=== PATIENT | male | born 1945 | race Caucasian/White ===

== ENCOUNTER 2017-04-26 21:31 | Emergency (ER) | payer MEDICARE, OTHER ==
[~2017-04-26] VITALS: Ht 157.5 cm; Wt 52.0 kg
[~2017-04-26 21:31] MED LIST: CETI-240 PO; FER325 PO; FINA5TAB PO; FOLI-49 PO; HYDR-3498 PO; IBUP-1542 PO; MAG355OR15 PO; ONDA4TAB8 PO; PANT40TA3 PO; VITA1TAB2 PO
[2017-04-26 22:31] VITALS: Ht 157.5 cm; Wt 52.0 kg
[2017-04-26] MEDS ORDERED: SOD CHLORIDE 0.9% 1,000 ML IV STA (23:00)
[2017-04-26] MEDS ORDERED: FAMOTIDINE 20 MG INJ IV STA (23:00)
[2017-04-26] MEDS: ONDANSETRON 4 MG INJ IV STA ×2 (23:21→23:40)
[2017-04-26 23:23] LABS: ADD SCAN DIFF NO
[2017-04-26 23:25] LABS: ADD UMIC NO; URINE BILIRUBIN (Dip) NEGATIVE (NEGATIVE); URINE BLOOD (Dip) NEGATIVE (NEGATIVE); URINE COLOR LT. YELLOW (YELLOW); URINE GLUCOSE (Dip) NEGATIVE (NEGATIVE); URINE KETONES (Dip) NEGATIVE (NEGATIVE); URINE LEUKOCYTE ESTERASE (Dip) NEGATIVE (NEGATIVE); URINE NITRITE (Dip) NEGATIVE (NEGATIVE); URINE TOTAL PROTEIN (Dip) NEGATIVE (NEGATIVE); URINE UROBILINOGEN (Dip) 1.0 E.U./dL (0.1-1.0)
[2017-04-26 23:26] LABS: BASOPHILS % 0.2 % (0.0-2.0); EOSINOPHILS # 0.5 10^3/ul (0.0-0.5); EOSINOPHILS % 8.8 % (0.0-7.0); HEMATOCRIT 26.7 % (42.0-52.0); HEMOGLOBIN 8.8 g/dl (14.0-18.0); LYMPHOCYTES % 15.9 % (15.0-51.0); MEAN CORPUSCULAR HEMOGLOBIN 32.8 pg (29.0-33.0); MEAN CORPUSCULAR VOLUME 99.6 fl (82.0-101.0); MEAN PLATELET VOLUME 10.2 fl (7.4-10.4); MONOCYTE # 0.5 10^3/ul (0.3-0.9); MONOCYTES % 7.6 % (0.0-11.0); NEUTROPHIL # 4.2 10^3/ul (1.6-7.5); NEUTROPHILS % 67.3 % (39.0-77.0); PLATELET COUNT 185 10^3/UL (140-415); RED BLOOD COUNT 2.68 10^6/ul (4.70-6.10); WHITE BLOOD COUNT 6.2 10^3/ul (4.8-10.8)
[2017-04-26 23:41] LABS: INR 1.05; PARTIAL THROMBOPLASTIN TIME 29.1 Sec (25.0-35.0); PROTIME 13.7 Sec (12.2-14.2); PT RATIO 1.1
[2017-04-26 23:52] LABS: ALANINE AMINOTRANSFERASE 32 IU/L (13-69); ALBUMIN 3.8 g/dl (3.3-4.9); ALBUMIN/GLOBULIN RATIO 1.26; ALKALINE PHOSPHATASE 68 IU/L (42-121); ANION GAP 11 (8-16); ASPARTATE AMINO TRANSFERASE 26 IU/L (15-46); BILIRUBIN,INDIRECT 0.1 mg/dl (0-1.1); BILIRUBIN,TOTAL 0.1 mg/dl (0.2-1.3); BLOOD UREA NITROGEN 18 mg/dl (7-20); CALCIUM 10.3 mg/dl (8.4-10.2); CARBON DIOXIDE 26 mmol/L (21-31); CHLORIDE 106 mmol/L (97-110); CREATININE 1.01 mg/dl (0.61-1.24); GLUCOSE 94 mg/dl (70-220); POTASSIUM 4.7 mmol/L (3.5-5.1); SODIUM 138 mmol/L (135-144); TOTAL PROTEIN 6.8 g/dl (6.1-8.1)
[2017-04-27 00:05] LABS: TROPONIN-I < 0.012 ng/ml (0.00-0.12)
--- NOTE | 2017-04-27 01:17 | RADRPT ---
PROCEDURE: CT Abdomen and pelvis without contrast. CLINICAL INDICATION: Abdominal pain. TECHNIQUE: CT scan of the abdomen and pelvis was performed on a multi-detector high-resolution CT scanner. Contiguous axial images were obtained from the lung bases to the ischial tuberosities wit hout intravenous contrast. Coronal and sagittal reformatted images were also obtained. Images were reviewed on the PACS workstation. One or more of the following dose reduction techniques were used: - Automated exposure control. - Adjustment of the mA and/or kV according to patient size. - Use of iterative reconstruction technique. Exam CTD/vol = 9.78 mGy. Total exam DLP = 560.32 mGy-cm. COMPARISON: 01/08/2016. FINDINGS: Evaluation of the lung bases demonstrates mild bibasilar atelectasis. There is a calcified granulom a within the left lower lobe. There is a small hiatal hernia. Abdomen: The liver is normal in size. There is a hypodense lesion within the left lobe of the live r measuring 1.5 x 1.0 cm which could represent a cyst and stable compared with the prior study. The re is no dilatation of the biliary tree. The gallbladder is not distended. The spleen, pancreas an d bilateral adrenal glands are within normal limits. Bilateral kidneys are normal in size with mult iple cysts and small cortical calcifications. There is no radiopaque ureteral calculus identified. There is no hydronephrosis or hydroureter. There is no retroperitoneal adenopathy. The abdominal aorta is of normal caliber with scattered atherosclerotic calcifications. There is prior gastric surgery. There is moderate retained stool within the colon. There is no bow el obstruction or free air. A normal appendix is identified. There is no diverticulosis or diverti culitis. There is no ascites. Pelvis: The bladder is unremarkable. The prostate and seminal vesicles are within normal limits. There is no significant pelvic adenopathy or free fluid. Evaluation of the osseous structures demonstrates no suspicious lytic or blastic lesion. There is a severe compression deformity of the L1 vertebral body with over 90% loss in vertebral body height an d minimal bony retropulsion. There are old fractures of the left femur and left inferior pubic kasie s. IMPRESSION: No acute abnormality identified within the abdomen and pelvis. Moderate retained stool within the colon. Small hiatal hernia. Prior gastric surgery. Small hepatic cyst, stable. Severe, chronic compression deformity of L1, stable. Vascular calcifications reflective of atherosclerosis. .Bubba Dias MD, Date Time Electronically viewed and signed by .Bubba Dias MD, on 04/27/2017 01:16 .T/
--- NOTE | 2017-04-27 01:26 | ERD ---
ER Documentation Chief Complaint Date/Time DATE: 04/27/17 TIME: 01:22 Chief Complaint GENERALIZED WEAKNESS, INCONTINENT OF LOOSE STOOLS, ABD PAIN,DENIES N/V HPI This is a 71-year-old male presents to the emergency room with his daughter for evaluation of generalized weakness, abdominal cramping and diarrhea. According to the daughter the patient has had diarrhea for the past 2 days which she describes as nonbloody and watery in nature. The patient has not had any recent travel. The patient does state he has some abdominal cramping to the lower portion of the abdomen and denies any nausea or vomiting associated with this. The patient was feeling weak after 2 days of diarrhea and came to the emergency room for evaluation ROS All systems reviewed and are negative except as per history of present illness. Medications Home Meds Active Scripts Ondansetron Hcl* (Zofran*) 4 Mg Tablet, 4 MG PO Q6H Y for VOMITTING, #30 TAB Prov:CHARLENE BURKS MD 01/08/16 Mag Hydrox/Al Hydrox/Simeth (Maalox Ms Liquid) 360 Ml Oral.susp, 2 TSP PO TID, # 24 OZ Prov:CHARLENE BURKS MD 01/08/16 Ibuprofen* (Motrin*) 600 Mg Tab, 600 MG PO TID for PAIN, #30 TAB Prov:CHARLENE BURKS MD 01/08/16 Pantoprazole* (Protonix*) 40 Mg Tablet.dr, 40 MG PO BID for 30 Days, TAB Prov:LAURA ANN [employer] 11/01/14 Hydrocodone Bit/Acetaminophen (Anexsia 5-325 Mg Tablet) 1 Tab Tab, 1 TAB PO Q4H Y for mild pain, #20 Prov:LAURA ANN NP 11/01/14 Reported Medications Vitamin B Complex (Super B Complex) 1 Tab Tablet, 1 TAB PO DAILY 10/12/14 Finasteride* (Proscar*) 5 Mg Tablet, 5 MG PO HS, TAB 10/12/14 Folic Acid* (Folic Acid*) 1 Mg Tablet, 1 MG PO DAILY, TAB 10/12/14 Cetirizine Hcl* (Cetirizine Hcl*) 10 Mg Tablet, 10 MG PO DAILY, TAB 10/12/14 Ferrous Sulfate* (Ferrous Sulfate*) 325 Mg Tabec, 325 MG PO BID, TAB 09/26/14 Allergies Allergies: Coded Allergies: No Known Allergy (Unverified , 01/08/16) PMhx/Soc Medical and Surgical Hx: pt denies Surgical Hx History of Surgery: No Anesthesia Reaction: No Hx Neurological Disorder: No Hx Respiratory Disorders: No Hx Cardiac Disorders: Yes (HTN) Hx Psychiatric Problems: No Hx Miscellaneous Medical Probl: No Hx Alcohol Use: No Hx Substance Use: No Hx Tobacco Use: Yes (QUIT 25 YRS AGO) Smoking Status: Former smoker Physical Exam Vitals Vital Signs Date Time Temp Pulse Resp B/P Pulse Ox O2 Delivery O2 Flow Rate FiO2 04/26/17 22:31 98.1 73 18 119/63 100 Physical Exam INITIAL VITAL SIGNS: Reviewed by me GENERAL: The patient is frail-appearing elderly male, no acute distress HEENT: Dry mucous membranes, pupils equal, round, and reactive to light. EOMI. There is no scleral icterus. NECK: C-spine is soft and supple, there is no meningismus. There is no cervical lymphadenopathy. LUNGS: Clear to auscultation bilaterally. There are no rales, wheezes or rhonchi. HEART: Regular rate and rhythm, no murmurs, clicks, rubs or gallops. ABDOMEN: Soft, non-tender, non-distended. There are bowel sounds in all four quadrants. No rebound or guarding. EXTREMITIES: There is no peripheral cyanosis or edema. No focal swelling or erythema. NEUROLOGICAL: The patient moves all four extremities with 5/5 strength. Cranial nerves II - XII are intact. Normal gait. Alert and oriented SKIN: There is no apparent rash or petechiae. HEME/LYMPHATIC: There is no evidence of excessive bruising or lymphedema. PSYCHIATRIC: The patient does not appear anxious or depressed. Result Diagram: 04/26/175 04/26/175 Results 24 hrs Laboratory Tests Test 04/26/17 23:15 White Blood Count 6.210^3/ul Red Blood Count 2.6810^6/ul Hemoglobin 8.8g/dl Hematocrit 26.7% Mean Corpuscular Volume 99.6fl Mean Corpuscular Hemoglobin 32.8pg Mean Corpuscular Hemoglobin Concent 33.0g/dl Red Cell Distribution Width 14.0% Platelet Count 99125^3/UL Mean Platelet Volume 10.2fl Neutrophils % 67.3% Lymphocytes % 15.9% Monocytes % 7.6% Eosinophils % 8.8% Basophils % 0.2% Nucleated Red Blood Cells % 0.0/100WBC Neutrophils # 4.210^3/ul Lymphocytes # 1.010^3/ul Monocytes # 0.510^3/ul Eosinophils # 0.510^3/ul Basophils # 0.010^3/ul Nucleated Red Blood Cells # 0.010^3/ul Prothrombin Time 13.7Sec Prothrombin Time Ratio 1.1 INR International Normalized Ratio 1.05 Activated Partial Thromboplast Time 29.1Sec Urine Color LT. YELLOW Urine Clarity CLEAR Urine pH 5.5 Urine Specific [place] 1.020 Urine Ketones NEGATIVE Urine Nitrite NEGATIVE Urine Bilirubin NEGATIVE Urine Urobilinogen 1.0 E.U./dL Urine Leukocyte Esterase NEGATIVE Urine Hemoglobin NEGATIVE Urine Glucose NEGATIVE% Urine Total Protein NEGATIVE Sodium Level 138mmol/L Potassium Level 4.7mmol/L Chloride Level 106mmol/L Carbon Dioxide Level 26mmol/L Anion Gap 11 Blood Urea Nitrogen 18mg/dl Creatinine 1.01mg/dl Glucose Level 94mg/dl Calcium Level 10.3mg/dl Total Bilirubin 0.1mg/dl Direct Bilirubin 0.00mg/dl Indirect Bilirubin 0.1mg/dl Aspartate Amino Transf (AST/SGOT) 26IU/L Alanine Aminotransferase (ALT/SGPT) 32IU/L Alkaline Phosphatase 68IU/L Troponin I < 0.012ng/ml Total Protein 6.8g/dl Albumin 3.8g/dl Globulin 3.00g/dl Albumin/Globulin Ratio 1.26 Lipase 26U/L Current Medications Medications (Trade) Dose Ordered Sig/Rajendra Route PRN Reason Start Time Stop Time Status Last Admin Dose Admin Sodium Chloride (NS) 1,000 ml @ 1,000 mls/hr Q1H STAT IV 04/26/17 23:00 04/26/17 23:59 DC 04/26/17 23:21 Ondansetron HCl (Zofran Inj) 4 mg ONCE STAT IV 04/26/17 23:00 04/26/17 23:02 DC Famotidine (Pepcid Iv) 20 mg ONCE STAT IV 04/26/17 23:00 04/26/17 23:02 DC 04/26/17 23:21 Procedures/MDM CT abdomen pelvis without: No acute abnormality identified within the abdomen and pelvis. Moderate retained stool within the colon. Small hiatal hernia. Prior gastric surgery. Small hepatic cyst, stable. Severe, chronic compression deformity of L1, stable. Vascular calcifications reflective of atherosclerosis. This 71-year-old male presents to the emergency room for evaluation of generalized weakness after 2 days of nonbloody diarrhea. When I evaluated this patient he was in no acute distress however he did have dry mucous membranes. Lab work was obtained which does show slight anemia however this patient has a baseline hemoglobin which is low at all times. This patient denies any blood in the stool. Electrolytes are within normal limits. CT of the abdomen pelvis was obtained which does show moderate retained stool however no signs of obstruction. The patient was given 1 L of fluids and upon my reevaluation he states he is feeling much better. The patient is hemodynamically stable and I feel that he does have weakness secondary to dehydration which was caused from his diarrhea. I advised the patient and the patient's family members acute the patient hydrated with water and Pedialyte if necessary. They did verbalize understanding and I advised him to return to the ER the patient developed a fever or any blood in the stool in the verbalized understanding as well Departure Diagnosis: Primary Impression: Diarrhea Additional Impressions: Dehydration Normocytic anemia Condition: Stable CHUCHO MARTÍNEZ DO Apr 27, 2017 01:26
[2017-04-27 01:42] VITALS: BP 128/60; PULSE 68; RESP 16; TEMP 98.5
== END 2017-04-27 01:44 | disposition home or self-care (01) ==
LOC: E/R 21:31
DX: R19.7 Diarrhea, unspecified (principal); E86.0 Dehydration; D64.9 Anemia, unspecified; I10 Essential (primary) hypertension; R10.9 Unspecified abdominal pain; Z87.891 Personal history of nicotine dependence
CPT/HCPCS: 36415; 74176; 80053; 81003; 83690; 84484; 85025; 85610; 85730; 93005; 96374; 99285; J7030; J2405

== ENCOUNTER 2018-01-16 16:11 | Emergency (ER) | END 2018-01-16 18:41 | disposition home or self-care (01) ==